=== PATIENT | male | born 1990 | race Caucasian/White ===

== ENCOUNTER 2018-05-28 22:08 | Emergency (ER) | payer OTHER ==
[2018-05-28] MEDS ORDERED: Sodium Chloride 0.9% 10 ML Syringe FLUSH PRN (22:35)
[2018-05-28] MEDS ORDERED: Sodium Chloride 0.9% 2.5 ML Syringe FLUSH PRN ×2 (22:35)
[2018-05-28] MEDS ORDERED: Sodium Chloride 0.9% 1,000 ML IV ONE (22:35)
--- NOTE | 2018-05-28 22:38 | EDM.PDOC ---
ED HPI GENERAL MEDICAL PROBLEM - General Chief Complaint: Syncope Stated Complaint: PASSED OUT, HEART CONDITION Time Seen by Provider: 05/28/18 22:11 Source of Information: Reports: Patient - History of Present Illness INITIAL COMMENTS - FREE TEXT/NARRATIVE: HISTORY AND PHYSICAL: History of present illness: 27-year-old male presenting in the department after syncopal episode with significant cardiac history including bilateral ventral septal defects. When he was 7 years old as well as bilateral Aj procedures. Patient states that around 2147 he awoke and had a "weird feeling in my heart" states that he felt lightheaded and passed out. He woke and noticed that he had a bloody nose. Denies falling or hitting his head however does not remember the actual event well. Denies any chest pain, shortness breath, diaphoresis prior to or after the event. He had been feeling well up until this other than he did feel somewhat dehydrated. He came to emergency department for further evaluation secondary to his complex cardiac history. He is currently visiting and is returning to [place] where he lives on . 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 He also had a bilateral Aj procedure done by Dr. Mcintosh at [facility]. He also had significant surgeries done at [facility] in [place]. On arrival to the emergency department patient was satting high 80s low 90s. We did place him on oxygen at that time an initial EKG showed a ventricular paced rhythm of 99. Patient was asymptomatic on arrival. Having no chest pain or shortness of breath. CBC did show some hemoconcentration with a hemoglobin of 17. CMP as well as troponin were unremarkable. I did talk with Dr. Berg, hand cultivator Radha Odom , and discussed the case with him. He also reviewed the EKG. He did recommend that the patient most likely needs his pacer interrogated. In addition I did talk to Dr. Jeronimo at [facility] , taxonomy teacher hand cultivator, and discussed the case with him. He was able to review records of the patient and felt that this was most likely not cardiac related. He felt that the syncopal event may been related to a vasovagal episode. He did agree that the patient's pacer should be interrogated. But as above did not think this was a heart rhythm issue. He stated that they would be more than happy to discuss the patient further at any time. I was also able to get other physicians the patient has dealt with in the past at [facility] as well as [facility] their names and numbers are as follows: Dr. Weinberg and Dr. Meme Hall [phone]. His primary is at [facility] . I did hydrate the patient with 1 L normal saline and his heart rate did improve to the mid 80s. I did not provide any additional fluids as I did not want to volume overload him. He is on Lasix. Secondary to above and are inability to interrogate his pacer at this time as well as lack of hospital beds for observation patient was transferred to [facility] with Dr. Schmidt, , accepting physician. All the above was relayed to him and patient was transferred in good condition. Review of systems: As per history of present illness and below otherwise all systems reviewed and negative. Past medical history: As per history of present illness and as reviewed below otherwise noncontributory. Surgical history: As per history of present illness and as reviewed below otherwise noncontributory. Social history: No reported history of drug or alcohol abuse. Family history: As per history of present illness and as reviewed below otherwise noncontributory. Physical exam: HEENT: Atraumatic, normocephalic, pupils reactive, negative for conjunctival pallor or scleral icterus, mucous membranes moist, throat clear, neck supple, nontender, trachea midline. Lungs: Clear to auscultation, breath sounds equal bilaterally, chest nontender. Heart: S1S2, regular, negative for clicks, rubs, or JVD. Abdomen: Soft, nondistended, nontender. Negative for masses or hepatosplenomegaly. Negative for costovertebral tenderness. Pelvis: Stable nontender. Genitourinary: Deferred. Rectal: Deferred. Extremities: Atraumatic, negative for cords or calf pain. Neurovascular unremarkable. Neuro: Awake, alert, oriented. Cranial nerves II through XII unremarkable. Cerebellum unremarkable. Motor and sensory unremarkable throughout. Exam nonfocal. Diagnostics: CBC, CMP, troponin, INR, lipase, chest x-ray, EKG 2, dig level Therapeutics: 1 L normal saline Impression: Syncopal episode Plan: Please see above H&P. - Related Data Allergies Allergy/AdvReac Type Severity Reaction Status Date / Time No Known Allergies Allergy Verified 05/28/18 22:35 Home Meds: Home Meds Aspirin 325 mg PO DAILY 05/28/18 [History] Carvedilol [Coreg] 25 mg PO BID 05/28/18 [History] Digoxin [Digitek] 125 mcg PO DAILY 05/28/18 [History] Furosemide [Lasix] 20 mg PO DAILY 05/28/18 [History] Lisinopril [Prinivil] 10 mg PO DAILY 05/28/18 [History] Spironolactone [Aldactone] 25 mg PO DAILY 05/28/18 [History] Past Medical History Cardiovascular History: Reports: Pacemaker, Other (See Below) Other Cardiovascular History: "congenital heart disease" Social & Family History - Tobacco Use Smoking Status *Q: Never Smoker ED ROS GENERAL - Review of Systems Review Of Systems: ROS reveals no pertinent complaints other than HPI. ED EXAM, GENERAL - Physical Exam Exam: See Below Course - Vital Signs Last Recorded V/S: Last Vital Signs Temp 97.3 F 05/29/18 00:45 Pulse 87 05/29/18 00:45 Resp 18 05/29/18 00:45 BP 129/68 05/29/18 00:45 Pulse Ox 92 L 05/29/18 00:45 - Orders/Labs/Meds Orders: Active Orders 24 hr Category Date Time Status Cardiac Monitoring [RC] . DIRECTED Care 05/28/18 22:35 Active EKG Documentation Completion [RC] STAT Care 05/28/18 22:35 Active Oxygen Therapy [RC] ASDIRECTED Care 05/28/18 22:35 Active Pulse Oximetry [RC] ASDIRECTED Care 05/28/18 22:35 Active Chest 1V Frontal [CR] Stat Exams 05/28/18 22:35 Taken DIGOXIN [CHEM] Stat Lab 05/29/18 01:13 Ordered UA W/MICROSCOPIC [URIN] Stat Lab 05/28/18 23:30 Ordered Sodium Chloride 0.9% [Saline Flush] Med 05/28/18 22:35 Active 10 ml FLUSH ASDIRECTED PRN Sodium Chloride 0.9% [Saline Flush] Med 05/28/18 22:35 Active 2.5 ml FLUSH ASDIRECTED PRN Sodium Chloride 0.9% [Saline Flush] Med 05/28/18 22:35 Active 2.5 ml FLUSH ASDIRECTED PRN Saline Lock Insert [OM.PC] Stat Oth 05/28/18 22:35 Ordered Medication Orders Sodium Chloride (Saline Flush) 2.5 ml FLUSH ASDIRECTED PRN PRN Reason: Keep Vein Open Sodium Chloride (Saline Flush) 10 ml FLUSH ASDIRECTED PRN PRN Reason: Keep Vein Open Sodium Chloride (Saline Flush) 2.5 ml FLUSH ASDIRECTED PRN PRN Reason: Keep Vein Open Labs: Laboratory Tests 05/28/18 05/28/18 05/28/18 Range/Units 22:33 22:33 22:33 WBC 6.89 (4.0-11.0) K/uL RBC 5.50 (4.50-5.90) M/uL Hgb 17.4 H (13.0-17.0) g/dL Hct 49.9 (38.0-50.0) % MCV 90.7 (80.0-98.0) fL MCH 31.6 (27.0-32.0) pg MCHC 34.9 (31.0-37.0) g/dL RDW Std Deviation 48.3 (28.0-62.0) fl RDW Coeff of Hector 15 (11.0-15.0) % Plt Count 135 L (150-400) K/uL MPV 12.90 H (7.40-12.00) fL Neut % (Auto) 61.4 (48.0-80.0) % Lymph % (Auto) 25.3 (16.0-40.0) % Pennington % (Auto) 10.6 (0.0-15.0) % Eos % (Auto) 2.0 (0.0-7.0) % Baso % (Auto) 0.7 (0.0-1.5) % Neut # (Auto) 4.2 (1.4-5.7) K/uL Lymph # (Auto) 1.7 (0.6-2.4) K/uL Pennington # (Auto) 0.7 (0.0-0.8) K/uL Eos # (Auto) 0.1 (0.0-0.7) K/uL Baso # (Auto) 0.1 (0.0-0.1) K/uL Nucleated RBC % 0.0 /100WBC Nucleated RBCs # 0 K/uL INR 1.22 Sodium 136 (136-148) mmol/L Potassium 3.6 (3.5-5.1) mmol/L Chloride 103 (98-107) mmol/L Carbon Dioxide 23.1 (21.0-32.0) mmol/L BUN 18 (7.0-18.0) mg/dL Creatinine 1.1 (0.8-1.3) mg/dL Est Cr Clr Drug Dosing 102.66 mL/min Estimated GFR (MDRD) > 60.0 ml/min Glucose 147 H (74-106) mg/dL Calcium 9.0 (8.5-10.1) mg/dL Total Bilirubin 2.8 H (0.2-1.0) mg/dL AST 41 H (15-37) IU/L ALT 54 (14-63) IU/L Alkaline Phosphatase 104 (46-116) U/L Troponin I < 0.050 (0.000-0.056) ng/mL Total Protein 7.3 (6.4-8.2) g/dL Albumin 4.1 (3.4-5.0) g/dL Globulin 3.2 (2.0-3.5) g/dL Albumin/Globulin Ratio 1.3 (1.3-2.8) Lipase 140 (73-393) U/L Urine Color Urine Appearance Urine pH (5.0-8.0) Ur Specific Stewart (1.001-1.035) Urine Protein (NEGATIVE) mg/dL Urine Glucose (UA) (NEGATIVE) mg/dL Urine Ketones (NEGATIVE) mg/dL Urine Occult Blood (NEGATIVE) Urine Nitrite (NEGATIVE) Urine Bilirubin (NEGATIVE) Urine Urobilinogen (<2.0) EU/dL Ur Leukocyte Esterase (NEGATIVE) Urine RBC (0-2/HPF) Urine WBC (0-5/HPF) Ur Epithelial Cells (NONE-FEW) Urine Bacteria (NEGATIVE) Urine Mucus (NONE-MOD) 05/28/18 Range/Units 23:30 WBC (4.0-11.0) K/uL RBC (4.50-5.90) M/uL Hgb (13.0-17.0) g/dL Hct (38.0-50.0) % MCV (80.0-98.0) fL MCH (27.0-32.0) pg MCHC (31.0-37.0) g/dL RDW Std Deviation (28.0-62.0) fl RDW Coeff of Hector (11.0-15.0) % Plt Count (150-400) K/uL MPV (7.40-12.00) fL Neut % (Auto) (48.0-80.0) % Lymph % (Auto) (16.0-40.0) % Pennington % (Auto) (0.0-15.0) % Eos % (Auto) (0.0-7.0) % Baso % (Auto) (0.0-1.5) % Neut # (Auto) (1.4-5.7) K/uL Lymph # (Auto) (0.6-2.4) K/uL Pennington # (Auto) (0.0-0.8) K/uL Eos # (Auto) (0.0-0.7) K/uL Baso # (Auto) (0.0-0.1) K/uL Nucleated RBC % /100WBC Nucleated RBCs # K/uL INR Sodium (136-148) mmol/L Potassium (3.5-5.1) mmol/L Chloride (98-107) mmol/L Carbon Dioxide (21.0-32.0) mmol/L BUN (7.0-18.0) mg/dL Creatinine (0.8-1.3) mg/dL Est Cr Clr Drug Dosing mL/min Estimated GFR (MDRD) ml/min Glucose (74-106) mg/dL Calcium (8.5-10.1) mg/dL Total Bilirubin (0.2-1.0) mg/dL AST (15-37) IU/L ALT (14-63) IU/L Alkaline Phosphatase (46-116) U/L Troponin I (0.000-0.056) ng/mL Total Protein (6.4-8.2) g/dL Albumin (3.4-5.0) g/dL Globulin (2.0-3.5) g/dL Albumin/Globulin Ratio (1.3-2.8) Lipase (73-393) U/L Urine Color YELLOW Urine Appearance CLEAR Urine pH 6.0 (5.0-8.0) Ur Specific Stewart >= 1.030 (1.001-1.035) Urine Protein 100 (NEGATIVE) mg/dL Urine Glucose (UA) NEGATIVE (NEGATIVE) mg/dL Urine Ketones NEGATIVE (NEGATIVE) mg/dL Urine Occult Blood TRACE-INTACT (NEGATIVE) Urine Nitrite NEGATIVE (NEGATIVE) Urine Bilirubin NEGATIVE (NEGATIVE) Urine Urobilinogen 2.0 H (<2.0) EU/dL Ur Leukocyte Esterase NEGATIVE (NEGATIVE) Urine RBC NONE SEEN (0-2/HPF) Urine WBC 0-1 (0-5/HPF) Ur Epithelial Cells RARE (NONE-FEW) Urine Bacteria RARE (NEGATIVE) Urine Mucus LIGHT (NONE-MOD) Meds: Medications Generic Name Dose Route Start Last Admin Trade Name Freyossi PRN Reason Stop Dose Admin Sodium Chloride 2.5 ml 05/28/18 22:35 Saline Flush FLUSH ASDIRECTED PRN Keep Vein Open Sodium Chloride 10 ml 05/28/18 22:35 Saline Flush FLUSH ASDIRECTED PRN Keep Vein Open Sodium Chloride 2.5 ml 05/28/18 22:35 Saline Flush FLUSH ASDIRECTED PRN Keep Vein Open Discontinued Medications Generic Name Dose Route Start Last Admin Trade Name Freq PRN Reason Stop Dose Admin Sodium Chloride 1,000 mls @ 999 mls/hr 05/28/18 22:35 05/28/18 22:57 Normal Saline IV 05/28/18 23:35 999 mls/hr .Bolus ONE Administration Departure - Departure Time of Disposition: 01:25 Disposition: DC/Tfer to Other 70 Condition: Good Clinical Impression: Syncopal episodes Qualifiers: Syncope type: unspecified Qualified Code(s): R55 - Syncope and collapse - Discharge Information Referrals: PCP,None [Primary Care Provider] - Forms: ED Department Discharge - My Orders Last 24 Hours: My Active Orders 05/28/18 22:35 Cardiac Monitoring [RC] . DIRECTED EKG Documentation Completion [RC] STAT Oxygen Therapy [RC] ASDIRECTED Pulse Oximetry [RC] ASDIRECTED Chest 1V Frontal [CR] Stat Sodium Chloride 0.9% [Saline Flush] 10 ml FLUSH ASDIRECTED PRN Sodium Chloride 0.9% [Saline Flush] 2.5 ml FLUSH ASDIRECTED PRN Sodium Chloride 0.9% [Saline Flush] 2.5 ml FLUSH ASDIRECTED PRN Saline Lock Insert [OM.PC] Stat 05/28/18 23:30 UA W/MICROSCOPIC [URIN] Stat 05/29/18 01:13 DIGOXIN [CHEM] Stat - Assessment/Plan Last 24 Hours: My Active Orders 05/28/18 22:35 Cardiac Monitoring [RC] . DIRECTED EKG Documentation Completion [RC] STAT Oxygen Therapy [RC] ASDIRECTED Pulse Oximetry [RC] ASDIRECTED Chest 1V Frontal [CR] Stat Sodium Chloride 0.9% [Saline Flush] 10 ml FLUSH ASDIRECTED PRN Sodium Chloride 0.9% [Saline Flush] 2.5 ml FLUSH ASDIRECTED PRN Sodium Chloride 0.9% [Saline Flush] 2.5 ml FLUSH ASDIRECTED PRN Saline Lock Insert [OM.PC] Stat 05/28/18 23:30 UA W/MICROSCOPIC [URIN] Stat 05/29/18 01:13 DIGOXIN [CHEM] Stat
[2018-05-28 23:22] LABS: CHLORIDE,CL 103 mmol/L (98-107); SODIUM,NA 136 mmol/L (136-148)
--- NOTE | 2018-05-29 09:26 | CR ---
EXAM DATE: 05/28/18 PATIENT'S AGE: 27 Patient: ELIANE BEN Facility: [place], [place] Site . Site : 1990 Study: XRay Chest [id number] 11:06:00 PM Ordering Physician: Eliseo Bee Final Report: INDICATION: syncope, sob TECHNIQUE: Chest 1 view COMPARISON: None FINDINGS: Cardiovascular and mediastinum: Cardiomegaly. Sternotomy changes. Postsurgical changes. The mediastinum.. Mediastinum is within normal limits. Lungs and pleural space: No focal consolidation. No sign of pleural effusion. No pneumothorax. Bones and soft tissues: No significant findings. IMPRESSION: No acute cardiopulmonary disease. Dictated by Catracho Ribeiro MD @ 05/28/2018 11:21:18 PM Dictated by: Catracho Ribeiro MD @ 05/28/2018 23:22:23 (Electronic Signature) Report Signed by Proxy. [facility]ITALOliver
== END 2018-05-29 01:15 | disposition other institution (70) ==
LOC: MW.ED 22:08
DX: R55 Syncope and collapse (principal); Z79.82 Long term (current) use of aspirin; Z79.899 Other long term (current) drug therapy
CPT/HCPCS: 36415; 71045; 80053; 80162; 81001; 83690; 84484; 85025; 85610; 93005; 96360; 96361; 99285; J7040